=== PATIENT | female | born 1945 | race Caucasian/White ===

== ENCOUNTER → 2020-01-24 | Outpatient (CLI) | payer OTHER ==
[~2020-01-24] MED LIST: EPIN.3I IM; FAMO40 PO; LISHYD1012 PO; METO50ER PO; PRED10 PO
== END | disposition home or self-care (01) ==
LOC: PLD 08:49 → LAB SHORT 08:49
DX: N95.0 Postmenopausal bleeding (principal)
CPT/HCPCS: 88305

== ENCOUNTER 2020-06-01 06:10 | Day surgery (SDC) | payer OTHER ==
[~2020-06-01] VITALS: Ht 167.6 cm; Wt 58.5 kg
[~2020-06-01 06:10] MED LIST changes: +HYDCHL25 PO; +LISI20 PO; +TOCO1000 PO; +TURMERIC500 M2 PO; +VITAMIN D310 MC5 PO; +Voltaren100 GM TOP
--- NOTE | 2020-06-01 07:07 | NUR ---
Ambulatory in Day Surgery History, Chart, Medications and Allergies reviewed before start of procedure.Patient confirms NPO status and agrees with scheduled surgery. Patient reports completing Chlorhexadine shower X2 prior to admission to hospital.Surgical site prepped with 2% Chlorhexidine cloth wipe. Lungs clear T/O to Auscultation. GLASSESS WILL BE REMOVED AND TAKEN TO PACU.
--- NOTE | 2020-06-01 09:58 | NUR ---
PT TO STEP SLEEPY BUT WAKES EASY TO VOICE COMMAND WATER GIVEN BUT PT CONT TO SLEEP PAIN IS 4/10 PER PT ALSO HAS LEFT SIDED CHRONIC KNEE PAIN
--- NOTE | 2020-06-01 10:59 | NUR ---
PTS DAUGHTER CALLED HEADING TO DAY SURGERY TO LEAD ELECTRICIAN PT FOR DISCHARGE PT TOLERATING PO WELL 1 NORCO GIVEN FOR PAIN
--- NOTE | 2020-06-01 11:25 | NUR ---
Patient up to Ambulate independently. Gait steady. Discharge instructions reviewed with patient. Patient verbalizes understanding. Copy given to patient to take home. Dressing to procedure site clean, dry, intact with no visible drainage, swelling, erythema or bruising noted. Patient States Post-Procedure ride home has been arranged. Discharged via wheelchair to private car for ride home. HARD COPY RX GIVEN TO BE FILLED FOR [employer]
== END 2020-06-01 22:53 | disposition home or self-care (01) ==
LOC: ORSCMMR 06:10 → ORD 07:30 → ORSCMMR 07:30
PROVIDERS: Surgery
PROC: 0YU50JZ Supplement Right Inguinal Region with Synthetic Substitute, Open Approach (ICD-10-PCS; principal; 2020-06-01 07:30)
PROC: 8E0W0CZ Robotic Assisted Procedure of Trunk Region, Open Approach (ICD-10-PCS; principal; 2020-06-01 07:30)
DX: K40.90 Unilateral inguinal hernia, without obstruction or gangrene, not specified as recurrent (principal); I10 Essential (primary) hypertension; K21.9 Gastro-esophageal reflux disease without esophagitis; Z79.899 Other long term (current) drug therapy
CPT/HCPCS: 49505; S2900; A9270-GY; C1781; J0690; J1100; J2370; J2405; J2704; J3010; J7120

== ENCOUNTER → 2022-11-07 | Outpatient (CLI) | payer OTHER ==
[2022-11-08 13:46] LABS: Candida species (DNA Probe) Negative (NEGATIVE); G. vaginalis (DNA Probe) Positive (NEGATIVE); T. vaginalis (DNA Probe) Negative (NEGATIVE)
== END | disposition home or self-care (01) ==
LOC: LAB SHORT 13:08 → LAB 13:08
PROVIDERS: Obstetrics & Gynecology
DX: N89.8 Other specified noninflammatory disorders of vagina (principal)
CPT/HCPCS: 87480; 87510; 87660

== ENCOUNTER → 2023-05-22 | Outpatient (CLI) | payer OTHER ==
[2023-05-22 09:33] LABS: BASOPHILS ABSOLUTE AUTO 0.04 K/mm3 (0.00-0.23); BASOPHILS PERCENT AUTO 1 % (0-2); EOSINOPHILS ABSOLUTE AUTO 0.06 K/mm3 (0.00-0.68); EOSINOPHILS PERCENT AUTO 1 % (0-6); Hematocrit 43.3 % (33.0-51.0); Hemoglobin 14.8 g/dL (11.5-16.0); Mean Corpuscular HGB 29.5 pg (26.0-34.0); Mean Corpuscular HGB Conc 34.2 g/dL (31.5-36.5); Mean Corpuscular Volume 86 fL (80-100); Mean Platelet Volume 10.1 fL (9.1-12.4); Platelet Count 184 K/mm3 (150-400); RDW Coefficient Variation 12.8 % (11.7-14.2); RDW Standard Deviation 40.1 fL (35.1-46.3); Red Blood Cell Count 5.01 M/mm3 (3.80-5.20)
[2023-05-22 09:45] LABS: Albumin, Blood 3.6 g/dL (3.4-5.0); Albumin/Globulin Ratio 0.9 (0.8-1.8); Bilirubin, Total 0.5 mg/dL (0.1-1.0); Bun/Creatinine Ratio 12.1 (12.0-20.0); Calcium, Blood 8.8 mg/dL (8.5-10.1); Creatinine, Blood 0.66 mg/dL (0.40-1.00); Globulin, Blood 3.8 g/dL (2.2-4.0); Potassium, Blood 3.5 mmol/L (3.5-5.5); Total Protein, Blood 7.4 g/dL (6.4-8.2)
[2023-05-22 10:01] LABS: IMMATURE GRAN ABSOLUTE AUTO 0.01 K/mm3 (0.00-0.10); IMMATURE GRAN PERCENT AUTO 0 % (0-1); LYMPHOCYTES ABSOLUTE AUTO 1.02 K/mm3 (0.84-5.20); LYMPHOCYTES PERCENT AUTO 21 % (21-46); MONOCYTES ABSOLUTE AUTO 0.73 K/mm3 (0.16-1.47); MONOCYTES PERCENT AUTO 15 % (4-13); NEUTROPHILS ABSOLUTE AUTO 2.94 K/mm3 (1.96-9.15); NEUTROPHILS PERCENT AUTO 61 % (41-73)
== END | disposition home or self-care (01) ==
LOC: LAB 09:27 → LAB SHORT 09:27
PROVIDERS: Physician Assistant
DX: R10.9 Unspecified abdominal pain (principal); R82.79 Other abnormal findings on microbiological examination of urine
CPT/HCPCS: 80053; 83690; 85025; 87086

== ENCOUNTER 2023-05-28 16:37 | Emergency (ER) | payer OTHER ==
[~2023-05-28] VITALS: Ht 170.2 cm; Wt 55.8 kg
[2023-05-28 17:52] LABS: BASOPHILS ABSOLUTE AUTO 0.04 K/mm3 (0.00-0.23); BASOPHILS PERCENT AUTO 1 % (0-2); EOSINOPHILS ABSOLUTE AUTO 0.11 K/mm3 (0.00-0.68); EOSINOPHILS PERCENT AUTO 1 % (0-6); Hematocrit 41.1 % (33.0-51.0); Hemoglobin 14.4 g/dL (11.5-16.0); IMMATURE GRAN ABSOLUTE AUTO 0.02 K/mm3 (0.00-0.10); IMMATURE GRAN PERCENT AUTO 0 % (0-1); LYMPHOCYTES ABSOLUTE AUTO 1.74 K/mm3 (0.84-5.20); LYMPHOCYTES PERCENT AUTO 21 % (21-46); MONOCYTES PERCENT AUTO 12 % (4-13); Mean Corpuscular HGB 29.8 pg (26.0-34.0); Mean Corpuscular Volume 85 fL (80-100); Mean Platelet Volume 9.6 fL (9.1-12.4); NEUTROPHILS ABSOLUTE AUTO 5.43 K/mm3 (1.96-9.15); NEUTROPHILS PERCENT AUTO 65 % (41-73); Platelet Count 392 K/mm3 (150-400); RDW Coefficient Variation 11.9 % (11.7-14.2); RDW Standard Deviation 36.8 fL (35.1-46.3); Red Blood Cell Count 4.84 M/mm3 (3.80-5.20); White Blood Cell Count 8.34 K/mm3 (4.00-11.30)
[2023-05-28 18:17] LABS: Albumin, Blood 3.9 g/dL (3.4-5.0); Albumin/Globulin Ratio 1.1 (0.8-1.8); Bilirubin, Total 0.6 mg/dL (0.1-1.0); Calcium, Blood 9.2 mg/dL (8.5-10.1); Creatinine, Blood 0.87 mg/dL (0.40-1.00); Globulin, Blood 3.5 g/dL (2.2-4.0); Potassium, Blood 3.7 mmol/L (3.5-5.5); Total Protein, Blood 7.4 g/dL (6.4-8.2)
[2023-05-28 18:59] LABS: Source, Urine Clean Catch
[2023-05-28 19:02] LABS: Appearance, Urine Hazy (Clear); Bilirubin, Urine Neg (Neg); Blood, Urine Neg (Neg); Color, Urine Yellow (P-Yellow); Glucose Qualitative, Urine Neg (Neg); Ketones, Urine Neg (Neg); Leukocyte Esterase, Urine 3+ (Neg); Nitrite, Urine Neg (Neg); Protein, Urine 2+ (Neg); Urobilinogen, Urine NORM (Normal)
[2023-05-28 19:09] LABS: Bacteria Many /hpf; Granular Casts 0-2 /lpf (0); Mucus Light (0-Heavy); Squamous Epithelial Cells Mod /hpf (Few); White Blood Cells, Urine 25-50 /hpf (0-5)
[2023-05-28] MEDS ORDERED: Pepcid20 MG PO (20:46)
[2023-05-28] MEDS ORDERED: HYDR1TAB94 PO (20:46)
[2023-05-28] MEDS ORDERED: CEFPODOXIME PR100 MG PO (20:46)
[2023-05-28 21:20] VITALS: BP 130/89
== END 2023-05-28 21:15 | disposition home or self-care (01) ==
LOC: ER 16:37
PROVIDERS: Physician Assistant
DX: R10.13 Epigastric pain (principal); M54.9 Dorsalgia, unspecified; K85.90 Acute pancreatitis without necrosis or infection, unspecified; N39.0 Urinary tract infection, site not specified; I10 Essential (primary) hypertension; Z88.0 Allergy status to penicillin; Z88.8 Allergy status to other drugs, medicaments and biological substances; Z91.030 Bee allergy status; Z79.899 Other long term (current) drug therapy
CPT/HCPCS: 80053; 81001; 83690; 85025; 87086; 99284; A9270

== ENCOUNTER 2023-05-30 15:04 | Observation (INO) | payer OTHER ==
[~2023-05-30] VITALS: Ht 170.2 cm; Wt 57.0 kg
[~2023-05-30 15:04] MED LIST changes: -AMLODIPINE BESYL5 MG PO; -Cefpodoxime Pr100 MG; -ESTRADIOL42.5 GM; -MELO7.5 PO; -ONDA4ODT MM
[2023-05-30 16:02] LABS: BASOPHILS ABSOLUTE AUTO 0.06 K/mm3 (0.00-0.23); BASOPHILS PERCENT AUTO 1 % (0-2); EOSINOPHILS ABSOLUTE AUTO 0.14 K/mm3 (0.00-0.68); EOSINOPHILS PERCENT AUTO 2 % (0-6); Hematocrit 39.9 % (33.0-51.0); Hemoglobin 13.6 g/dL (11.5-16.0); IMMATURE GRAN ABSOLUTE AUTO 0.01 K/mm3 (0.00-0.10); IMMATURE GRAN PERCENT AUTO 0 % (0-1); LYMPHOCYTES PERCENT AUTO 25 % (21-46); MONOCYTES ABSOLUTE AUTO 0.96 K/mm3 (0.16-1.47); MONOCYTES PERCENT AUTO 14 % (4-13); Mean Corpuscular HGB 29.2 pg (26.0-34.0); Mean Corpuscular HGB Conc 34.1 g/dL (31.5-36.5); Mean Corpuscular Volume 86 fL (80-100); Mean Platelet Volume 9.4 fL (9.1-12.4); NEUTROPHILS ABSOLUTE AUTO 4.16 K/mm3 (1.96-9.15); NEUTROPHILS PERCENT AUTO 58 % (41-73); Platelet Count 340 K/mm3 (150-400); RDW Coefficient Variation 11.9 % (11.7-14.2); RDW Standard Deviation 37.2 fL (35.1-46.3); Red Blood Cell Count 4.65 M/mm3 (3.80-5.20); White Blood Cell Count 7.13 K/mm3 (4.00-11.30)
[2023-05-30 16:20] LABS: Albumin, Blood 3.5 g/dL (3.4-5.0); Albumin/Globulin Ratio 1.1 (0.8-1.8); Bilirubin, Total 0.4 mg/dL (0.1-1.0); Calcium, Blood 8.9 mg/dL (8.5-10.1); Creatinine, Blood 0.67 mg/dL (0.40-1.00); Globulin, Blood 3.2 g/dL (2.2-4.0); Potassium, Blood 4.1 mmol/L (3.5-5.5); Total Protein, Blood 6.7 g/dL (6.4-8.2)
[2023-05-30] MEDS ORDERED: Cefpodoxime Pr100 MG (16:55)
[2023-05-30] MEDS ORDERED: AMLODIPINE BESYL5 MG PO (16:56)
[2023-05-30] MEDS ORDERED: MELO7.5 PO (16:57)
[2023-05-30] MEDS ORDERED: ESTRADIOL42.5 GM (18:08)
[2023-05-30 18:15] VITALS: BP 144/74
--- NOTE | 2023-05-30 18:24 | NUR ---
PT ARRIVED TO UNIT FROM ER ON GURNEY ABLE TO STAND AND TRANSFER TO BED, NO WEAKNESS NOTED. PT REPORTS PAIN AT 3/10, TOLERABLE AT THIS TIME. PT EATING CLEAR LIQUID DIET AT THIS TIME. PLAN IS NPO AT MIDNIGHT. PT AGREEABLE. ORIENTED TO UNIT, CALL LIGHT IN REACH.
[2023-05-31] VITALS (13 sets, daily range): BP systolic 141–185; BP diastolic 78–95
[2023-05-31 04:29] LABS: BASOPHILS ABSOLUTE AUTO 0.04 K/mm3 (0.00-0.23); BASOPHILS PERCENT AUTO 1 % (0-2); EOSINOPHILS ABSOLUTE AUTO 0.15 K/mm3 (0.00-0.68); EOSINOPHILS PERCENT AUTO 2 % (0-6); Hematocrit 38.1 % (33.0-51.0); Hemoglobin 12.9 g/dL (11.5-16.0); IMMATURE GRAN ABSOLUTE AUTO 0.02 K/mm3 (0.00-0.10); IMMATURE GRAN PERCENT AUTO 0 % (0-1); LYMPHOCYTES ABSOLUTE AUTO 1.94 K/mm3 (0.84-5.20); LYMPHOCYTES PERCENT AUTO 28 % (21-46); MONOCYTES ABSOLUTE AUTO 0.95 K/mm3 (0.16-1.47); MONOCYTES PERCENT AUTO 14 % (4-13); Mean Corpuscular HGB 29.2 pg (26.0-34.0); Mean Corpuscular HGB Conc 33.9 g/dL (31.5-36.5); Mean Corpuscular Volume 86 fL (80-100); Mean Platelet Volume 9.4 fL (9.1-12.4); NEUTROPHILS ABSOLUTE AUTO 3.73 K/mm3 (1.96-9.15); NEUTROPHILS PERCENT AUTO 55 % (41-73); Platelet Count 330 K/mm3 (150-400); RDW Coefficient Variation 11.8 % (11.7-14.2); RDW Standard Deviation 37.2 fL (35.1-46.3); Red Blood Cell Count 4.42 M/mm3 (3.80-5.20); White Blood Cell Count 6.83 K/mm3 (4.00-11.30)
[2023-05-31 04:48] LABS: Magnesium, Blood 2.3 mg/dL (1.6-2.4)
[2023-05-31 04:49] LABS: Bilirubin, Total 0.4 mg/dL (0.1-1.0); Bun/Creatinine Ratio 15.8 (12.0-20.0); Calcium, Blood 8.5 mg/dL (8.5-10.1); Creatinine, Blood 0.63 mg/dL (0.40-1.00); Globulin, Blood 3.1 g/dL (2.2-4.0); Phosphorus, Blood 3.7 mg/dL (2.5-4.9); Potassium, Blood 4.4 mmol/L (3.5-5.5); Total Protein, Blood 6.1 g/dL (6.4-8.2)
[2023-05-31 04:59] LABS: International Normalized Ratio 1.05
--- NOTE | 2023-05-31 09:36 | NUR ---
PT OUT OF ROOM FOR PROCEDURE AT THIS TIME.
[2023-05-31] MEDS ORDERED: HYDR1TAB94 PO (12:47)
[2023-05-31] MEDS ORDERED: ONDA4ODT MM (12:49)
--- NOTE | 2023-05-31 16:45 | NUR ---
DISCHARGE S/P LAP ALBERTO PT DENIED PAIN OR NAUSEA SINCE PROCEDURE. TOLERATING DIET WELL, VOIDING SPONTANEOUSLY. AMBULATING INDEPENDENTLY IN ROOM. LAP SITES REMAIN CDI. ALL INSTRUCTIONS GONE OVER WITH PATIENT PRESCRIPTION IN DISCHARGE PACK. NO QUESTIONS AT THIS TIME. IV REMOVED WNL. ESCORTED OUT VIA WHEELCHAIR. ALL BELONGINGS WITH PATIENT.
== END 2023-05-31 16:47 | disposition home or self-care (01) ==
LOC: ER 15:04 → SURS 15:05 → ER 17:10 → SURS 17:10
PROVIDERS: Emergency Medicine; ADMIT Family Medicine
DX: K80.12 Calculus of gallbladder with acute and chronic cholecystitis without obstruction (principal); I11.0 Hypertensive heart disease with heart failure; I50.30 Unspecified diastolic (congestive) heart failure; E78.5 Hyperlipidemia, unspecified; Z88.0 Allergy status to penicillin; Z88.8 Allergy status to other drugs, medicaments and biological substances; Z79.899 Other long term (current) drug therapy
CPT/HCPCS: 74300; 80053; 83690; 83735; 84100; 85025; 85610; 88304; 93005; 93010; 99285-25; A9270; C1729; J0696; J1100; J1885; J2250; J2371; J2405; J2704; J3010; J7050

== ENCOUNTER → 2023-05-30 | Outpatient (CLI) | payer OTHER ==
[~2023-05-30] MED LIST changes: +AMLODIPINE BESYL5 MG PO; +CEFPODOXIME PR100 MG PO; +Cefpodoxime Pr100 MG; +ESTRADIOL42.5 GM; +HYDR1TAB94 PO; +MELO7.5 PO; +ONDA4ODT MM; +Pepcid20 MG PO
[2023-05-30 12:30] LABS: BASOPHILS ABSOLUTE AUTO 0.07 K/mm3 (0.00-0.23); BASOPHILS PERCENT AUTO 1 % (0-2); EOSINOPHILS ABSOLUTE AUTO 0.11 K/mm3 (0.00-0.68); EOSINOPHILS PERCENT AUTO 2 % (0-6); Hematocrit 41.8 % (33.0-51.0); Hemoglobin 14.6 g/dL (11.5-16.0); IMMATURE GRAN ABSOLUTE AUTO 0.02 K/mm3 (0.00-0.10); IMMATURE GRAN PERCENT AUTO 0 % (0-1); LYMPHOCYTES ABSOLUTE AUTO 1.79 K/mm3 (0.84-5.20); LYMPHOCYTES PERCENT AUTO 29 % (21-46); MONOCYTES ABSOLUTE AUTO 0.83 K/mm3 (0.16-1.47); MONOCYTES PERCENT AUTO 14 % (4-13); Mean Corpuscular HGB 29.9 pg (26.0-34.0); Mean Corpuscular HGB Conc 34.9 g/dL (31.5-36.5); Mean Corpuscular Volume 86 fL (80-100); Mean Platelet Volume 9.2 fL (9.1-12.4); NEUTROPHILS ABSOLUTE AUTO 3.29 K/mm3 (1.96-9.15); NEUTROPHILS PERCENT AUTO 54 % (41-73); Platelet Count 379 K/mm3 (150-400); RDW Standard Deviation 37.2 fL (35.1-46.3); Red Blood Cell Count 4.89 M/mm3 (3.80-5.20); White Blood Cell Count 6.11 K/mm3 (4.00-11.30)
[2023-05-30 12:41] LABS: Albumin, Blood 3.8 g/dL (3.4-5.0); Albumin/Globulin Ratio 1.1 (0.8-1.8); Bilirubin, Total 0.4 mg/dL (0.1-1.0); Bun/Creatinine Ratio 15.3 (12.0-20.0); Calcium, Blood 9.1 mg/dL (8.5-10.1); Creatinine, Blood 0.85 mg/dL (0.40-1.00); Globulin, Blood 3.6 g/dL (2.2-4.0); Potassium, Blood 4.2 mmol/L (3.5-5.5); Total Protein, Blood 7.4 g/dL (6.4-8.2)
== END ==
LOC: LAB SHORT 12:21 → LAB 12:21
PROVIDERS: Emergency Medicine
DX: N39.0 Urinary tract infection, site not specified (principal); R10.13 Epigastric pain
CPT/HCPCS: 80053; 83690; 85025; 87086

== ENCOUNTER 2024-12-27 07:14 | Day surgery (SDC) | payer OTHER ==
[~2024-12-27] VITALS: Ht 170.2 cm; Wt 61.7 kg
[2024-12-27] VITALS (10 sets, daily range): BP systolic 118–175; BP diastolic 66–88
[~2024-12-27 07:14] MED LIST changes: +AMLODIPINE BESYL5 MG PO; +Bupivacaine 0.5% Inj 10 ML Vial ONE; +Cefpodoxime Pr100 MG; +Dexamethasone Sod Phos 10 MG/ML 1ML VIAL ONE; +Dexmedetomidine HCL 200 MCG / 2 ML ONE; +ESTRADIOL42.5 GM VAG; +Ketorolac Tromethamine 30mg Vial ONE; +Lidocaine HCl 2% 20 ML MDV ONE; +MAGNESIUM CITRATE PO; +MELO7.5 PO; +ONDA4ODT MM; +Ondansetron HCl 2 MG / ML 2ML Vial ONE; +propofoL 100 ML IV ONE; +propofoL 20 ML IV ONE
[2024-12-27] MEDS ORDERED: Tranexamic Acid 100 ML IV SCH (07:15)
[2024-12-27] MEDS ORDERED: Lactated Ringer's 1,000 ML IV SCH ×2 (07:15→09:35)
[2024-12-27] MEDS ORDERED: OxyCODONE HCL 10 MG TABCR PO SCH (07:15)
[2024-12-27] MEDS ORDERED: Ropivacaine 0.5% HCl/Pf 123.125 MG,EPINEPHrine HCL 0.25 MG,Ketorolac Tromethamine 15 MG... INFIL SCH (07:15)
[2024-12-27] MEDS ORDERED: CeFAZolin Sodium 2,000 MG in NS 100 ML IV SCH ×2 (07:15→17:00)
[2024-12-27] MEDS ORDERED: Chlorhexidine Mouth Care 15 ML UDC MT SCH (07:15)
[2024-12-27] MEDS ORDERED: Acetaminophen 500 MG Tab PO SCH ×2 (07:15→16:00)
--- NOTE | 2024-12-27 08:00 | NUR ---
Ambulatory in Day Surgery. History, Chart, Medications and Allergies reviewed before start of procedure. Lungs clear T/O to Auscultation. Patient confirms NPO status and agrees with scheduled surgery. Pre-Op teaching done. Pt verbalizes understanding. PT BELONGINGS PLACED UNDERNEATH GURNEY FOR SAFEKEEPING. PT GLASSES TAKEN TO PACU FOR SAFEKEEPING.
[2024-12-27] MEDS ORDERED: ePHEDrine Sulfate 50 MG/ML 1ML Injection ONE (08:54)
[2024-12-27] MEDS ORDERED: Bisacodyl 10 MG Supp PR PRN (09:30)
[2024-12-27] MEDS ORDERED: Ondansetron HCl 2 MG / ML 2ML Vial IV PRN (09:30)
[2024-12-27] MEDS ORDERED: OxyCODONE HCL 5 MG TAB PO PRN ×2 (09:30→09:35)
[2024-12-27] MEDS ORDERED: Promethazine HCl 25 MG Tab PO PRN (09:30)
[2024-12-27] MEDS ORDERED: Metoclopramide HCl 5MG / ML 2ML Vial IV PRN (09:35)
[2024-12-27] MEDS ORDERED: DiphenhydrAMINE HCL 25 MG Cap PO PRN (09:35)
[2024-12-27] MEDS ORDERED: Magnesium Hydroxide Conc 10 ML UDC PO PRN (09:35)
[2024-12-27] MEDS ORDERED: FLU VACC TS2024-25(6MOS UP)/PF 45 MCG/0.5 ML SYRINGE IM SCH (09:40)
[2024-12-27] MEDS ORDERED: HYDROmorphone HCl/Pf 1MG SYR IV PRN (09:40)
[2024-12-27] MEDS ORDERED: Phenylephrine HCl 100 MCG/ML-NS 10MLSYR (1MG/10ML) ONE (09:41)
--- NOTE | 2024-12-27 11:06 | NUR ---
PT ARRIVED TO RM 216 FROM PACU AT APPROXIMATELY 1045. PT ALERT/ORIENTED AND PLEASANT. SHE ANSWERS QUESTIONS APPROPRIATELY. CALL LIGHT PLACED WITHIN REACH. PT DENIES PAIN. SHE HAD SPINAL ANESTHESIA SENSATION DECREASED TO BLE R/T SPINAL ANESTHESIA, PT UNABLE TO MOVE BLE. PT EDUCATED REGARDING PAIN MANAGMENT AND MANAGING PAIN BEFORE IT BECOMES SEVERE. FAMILY AT THE BEDSIDE FOR SUPPORT.
[2024-12-27] MEDS ORDERED: ASPI81CH PO (11:26)
[2024-12-27] MEDS ORDERED: Ketorolac Tromethamine 15mg Vial IV SCH (12:00)
--- NOTE | 2024-12-27 14:31 | NUR ---
Pt. is awake and sitting up in a recliner with her knee elevated. Daughters are present at bedside and welcome my visit. 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 Facilitated a short life review and establishe rapport. Pt. verbalizes an expectation that she will be discharged home at some point this afternoon. Prayed for Pt. Pt. and family verbalized gratitude for the spiritual care visit.
--- NOTE | 2024-12-27 16:11 | NUR ---
DISCHARGE PT PROVIDED WITH WRITTEN AND VERBAL DISCHARGE INSTRUCTIONS; SHE REPORTED UNDERSTANDING. PAIN MANAGED AT TIME OF DISCHARGE. PT MET INPATIENT GOALS WITH PHYSICAL THERAPY. SHE WAS ABLE TO VOID. VSS. TOLERATING PO. PT ASSISTED OUT IN W/C AT 1535.
[2024-12-27] MEDS ORDERED: Docusate Sodium 100 MG Cap PO SCH (21:00)
[2024-12-28] MEDS ORDERED: Metoprolol Succinate 25 MG TABCR PO SCH (09:00)
[2024-12-28] MEDS ORDERED: Aspirin 81 MG Chew PO SCH (09:00)
[2024-12-28] MEDS ORDERED: Estradiol Vag Cream 0.1 MG/G 42.5 GM Tube VAG SCH (09:00)
[2024-12-28] MEDS ORDERED: Lisinopril 20 MG Tab PO SCH (09:00)
== END 2024-12-27 15:38 | disposition home or self-care (01) ==
LOC: ORSCMMR 07:14 → ORD 08:15 → SURS 10:44 → ORSCMMR 15:38 → ORD 01-03 08:15
PROVIDERS: Orthopaedic Surgery
PROC: 0SRD0J9 Replacement of Left Knee Joint with Synthetic Substitute, Cemented, Open Approach (ICD-10-PCS; principal; 2024-12-27 08:15)
PROC: 8E0Y0CZ Robotic Assisted Procedure of Lower Extremity, Open Approach (ICD-10-PCS; principal; 2024-12-27 08:15)
DX: M17.12 Unilateral primary osteoarthritis, left knee (principal); I10 Essential (primary) hypertension; E78.5 Hyperlipidemia, unspecified; Z79.899 Other long term (current) drug therapy
CPT/HCPCS: 73560-LT; 97110; 97116; 97161; 97530; A9270; C1713; C1776; J0171; J0690; J0735; J1100; J1885; J2371; J2405; J2704; J2795; J7120

== ENCOUNTER → 2025-01-31 | Outpatient (CLI) | payer OTHER ==
[~2025-01-31] MED LIST changes: +ASPI81CH PO; -Bupivacaine 0.5% Inj 10 ML Vial ONE; -Dexamethasone Sod Phos 10 MG/ML 1ML VIAL ONE; -Dexmedetomidine HCL 200 MCG / 2 ML ONE; -Ketorolac Tromethamine 30mg Vial ONE; -Lidocaine HCl 2% 20 ML MDV ONE; -Ondansetron HCl 2 MG / ML 2ML Vial ONE; -propofoL 100 ML IV ONE; -propofoL 20 ML IV ONE
[2025-01-31 19:33] LABS: Bacterial Vaginosis PCR Negative (NEGATIVE); Candida glabrata-krusei, PCR NOT DETECTED (NOT DETECT)
[2025-01-31 19:34] LABS: Candida Group, PCR DETECTED (NOT DETECT)
== END | disposition home or self-care (01) ==
LOC: LAB SHORT 16:54 → LAB 16:54
PROVIDERS: Obstetrics & Gynecology
DX: N76.0 Acute vaginitis (principal)
CPT/HCPCS: 81515

== ENCOUNTER → 2025-01-31 | Outpatient (CLI) | payer OTHER ==
[2025-01-31 20:07] LABS: Adenovirus F 40/41 Not Detected (NOT DETECT); Astrovirus Not Detected (NOT DETECT); Campylobacter Sp Not Detected (NOT DETECT); Cryptosporidium Not Detected (NOT DETECT); Cyclospora Cayetanensis Not Detected (NOT DETECT); E. Coli O157 Not Detected (NOT DETECT); Entamoeba Histolytica Not Detected (NOT DETECT); Enteroaggregative E. coli-EAEC Not Detected (NOT DETECT); Enteropathogenic E. coli-EPEC Not Detected (NOT DETECT); Enterotoxigenic E. coli-ETEC Not Detected (NOT DETECT); Giardia Lamblia Not Detected (NOT DETECT); Norovirus GI/GII Not Detected (NOT DETECT); Plesiomonas Shigelloides Not Detected (NOT DETECT); Rotavirus A Not Detected (NOT DETECT); Salmonella Sp Not Detected (NOT DETECT); Sapovirus Not Detected (NOT DETECT); Shiga Toxin-prod E. coli-STEC Not Detected (NOT DETECT); Shigella/Enteroin E. coli-EIEC Not Detected (NOT DETECT); Vibrio Cholerae Not Detected (NOT DETECT); Vibrio Sp Not Detected (NOT DETECT); Yersinia Enterocolitica Not Detected (NOT DETECT)
== END | disposition home or self-care (01) ==
LOC: LAB SHORT 15:11 → LAB 15:11
PROVIDERS: Internal Medicine
DX: R19.7 Diarrhea, unspecified (principal); N76.0 Acute vaginitis
CPT/HCPCS: 81515; 87507

== ENCOUNTER 2025-08-04 07:40 | Day surgery (SDC) | payer OTHER ==
[~2025-08-04] VITALS: Ht 170.2 cm; Wt 58.6 kg
[2025-08-04] MEDS ORDERED: CeFAZolin Sodium 2,000 MG VIAL ONE (07:56)
[2025-08-04] MEDS ORDERED: MELO7.5 (08:02)
[2025-08-04] MEDS ORDERED: AMLODIPINE BES2.5 MG (08:02)
[2025-08-04] MEDS ORDERED: Dexamethasone Sod Phos 10 MG/ML 1ML VIAL ONE (08:28)
[2025-08-04] MEDS ORDERED: Ondansetron HCl 2 MG / ML 2ML Vial ONE (08:28)
[2025-08-04] MEDS ORDERED: FentaNYL Citrate 50 MCG/ML 2 ML Injection ONE (08:28)
[2025-08-04] MEDS ORDERED: Bupivacaine 0.5% Inj 50 ML Vial (NON CHARGE) INJ ONE (08:58)
[2025-08-04 09:46] VITALS: BP 160/70
[2025-08-04] MEDS ORDERED: Phenylephrine HCl 100 MCG/ML-NS 10MLSYR (1MG/10ML) ONE (10:01)
--- NOTE | 2025-08-04 10:14 | NUR ---
08/04/25 1014 Manisha Magaña RN ASSISTED PT TO RECLINER. DENIES DIZZINESS/NAUSEA/PAIN. VSS. TOLERATING PO INTAKE.
== END 2025-08-04 10:17 | disposition home or self-care (01) ==
LOC: ORSCSDS 07:40
PROVIDERS: Surgery
PROC: 0HBU0ZZ Excision of Left Breast, Open Approach (ICD-10-PCS; principal; 2025-08-04 08:45)
DX: C50.912 Malignant neoplasm of unspecified site of left female breast (principal); Z17.0 Estrogen receptor positive status [ER+]; Z17.21 Progesterone receptor positive status; Z17.32 Human epidermal growth factor receptor 2 negative status; I10 Essential (primary) hypertension; E78.5 Hyperlipidemia, unspecified; Z79.899 Other long term (current) drug therapy
CPT/HCPCS: 76098; 88307; 88341; 88342; J0690; J1100; J2371; J2405; J2704; J3010; J7120

== ENCOUNTER 2025-08-21 12:08 | Day surgery (SDC) | payer OTHER ==
[~2025-08-21] VITALS: Ht 170.2 cm; Wt 60.2 kg
[~2025-08-21 12:08] MED LIST changes: +AMLODIPINE BES2.5 MG; +MELO7.5
[2025-08-21] MEDS ORDERED: CeFAZolin Sodium 2,000 MG VIAL ONE (12:22)
[2025-08-21] MEDS ORDERED: FentaNYL Citrate 50 MCG/ML 2 ML Injection ONE ×2 (13:01→14:23)
[2025-08-21] MEDS ORDERED: Dexamethasone Sod Phos 10 MG/ML 1ML VIAL ONE (13:05)
[2025-08-21] MEDS ORDERED: Ondansetron HCl 2 MG / ML 2ML Vial ONE (13:05)
[2025-08-21] MEDS ORDERED: Bupivacaine 0.5% HCl 5 MG/ML 30MLVIAL INJ ONE (13:17)
[2025-08-21] MEDS ORDERED: Ketorolac Tromethamine 30mg Vial ONE (13:36)
[2025-08-21] MEDS ORDERED: Phenylephrine HCl 100 MCG/ML-NS 10MLSYR (1MG/10ML) ONE (13:36)
[2025-08-21] MEDS ORDERED: HYDROcodone 5-APAP 325 TAB ONE (14:36)
[2025-08-21 14:43] VITALS: BP 178/80
--- NOTE | 2025-08-21 15:26 | NUR ---
08/21/25 1526 Katie Hogan PT RECEIVED A PAIN PILL AT 1450. PT ALSO RECEIVED A TOTAL OF 50MCG OF FENTANYL GIVEN SLOWLY VIA IV. PT ABLE TO VERBALIZE NEEDS. PT PLEASANT AND COOPERATIVE WITH CARE PROVIDED. PT STATED THAT HER PAIN WAS A 5-6/10, BEFORE ANY OF THE PAIN MEDS WERE ADMINISTRATED. PT STATED THAT HER TOLERABLE GOAL FOR PAIN WAS A 3/10. PT STATED THAT HER PAIN WAS A 4/10 BEFORE BEING DISCHARGED FROM THE FACILITY. PT'S DAUGHTER, GISELL AT BEDSIDE, ALL QUESTIONS ANSWERED AND CONCERNS ADDRESSED BY GOING OVER DISCHARGE INSTRUCTIONS. PT COLLECTED ALL PERSONAL BELONGINGS. PT ASSISTED TO W/C AND TO PRIVATE VEHICLE. PT ABLE TO TOLERATE FLUIDS AND SNACK WELL.
== END 2025-08-21 15:18 | disposition home or self-care (01) ==
LOC: ORSCSDS 12:08
PROVIDERS: Surgery
PROC: 07B60ZX Excision of Left Axillary Lymphatic, Open Approach, Diagnostic (ICD-10-PCS; principal; 2025-08-21 13:45)
DX: C50.912 Malignant neoplasm of unspecified site of left female breast (principal); I10 Essential (primary) hypertension; Z17.0 Estrogen receptor positive status [ER+]; Z17.21 Progesterone receptor positive status; Z17.32 Human epidermal growth factor receptor 2 negative status; E78.5 Hyperlipidemia, unspecified; Z79.899 Other long term (current) drug therapy
CPT/HCPCS: 88307; 88342; A9270; J0690; J1100; J1885; J2371; J2405; J2704; J3010; J7120; Q9968

== ENCOUNTER 2025-09-12 04:27 | Day surgery (SDC) | payer OTHER ==
[~2025-09-12] VITALS: Ht 170.2 cm; Wt 60.9 kg
[~2025-09-12 04:27] MED LIST changes: +Ondansetron 4 MG SoluTab MM PRN
[2025-09-12] MEDS ORDERED: Balanced Salt Epinephrine Irrigation Solution 500 mL IR SCH (06:00)
[2025-09-12] MEDS ORDERED: PHENYLEPHRINE\\TROPICAMIDE\\TETRACAINE OPHTHALMIC DILATING SOLN LEFTEYE PRN (06:00)
[2025-09-12] MEDS ORDERED: Povidone-Iodine 450 DROP/30 ML Solution LEFTEYE SCH (06:00)
[2025-09-12] MEDS ORDERED: Moxifloxacin HCL 0.5 MG/0.1 ML 0.4MLSYR LEFTEYE SCH (06:00)
[2025-09-12] MEDS ORDERED: Povidone-Iodine 450 DROP/30 ML Solution ONE (06:13)
[2025-09-12] MEDS ORDERED: Tetracaine HCl/Pf 0.5% Opth Soln 4 ml ONE (06:13)
--- NOTE | 2025-09-12 11:35 | NUR ---
09/12/25 1135 Terra Hawkins PT'S ANXIETY LEVEL 10 PRIOR TO GIVING 10MG PO VALIUM IN PREOP.
--- NOTE | 2025-09-12 12:04 | NUR ---
09/12/25 1204 Jen Malik 154/74 76 98% 18
[2025-09-12 12:33] VITALS: BP 136/71
== END 2025-09-12 12:40 | disposition home or self-care (01) ==
LOC: ORSCSDS 04:27
PROVIDERS: Student in an Organized Health Care Education/Training Program
PROC: 08RK3JZ Replacement of Left Lens with Synthetic Substitute, Percutaneous Approach (ICD-10-PCS; principal; 2025-09-12 12:30)
DX: H25.813 Combined forms of age-related cataract, bilateral (principal); H52.202 Unspecified astigmatism, left eye; I10 Essential (primary) hypertension; E78.5 Hyperlipidemia, unspecified; Z79.899 Other long term (current) drug therapy
CPT/HCPCS: A9270; V2632